=== PATIENT | female | born 1990 | race Caucasian/White ===

== ENCOUNTER 2021-01-11 00:46 | Emergency (ER) | payer SELFPAY ==
[~2021-01-11] VITALS: Ht 167.6 cm; Wt 67.1 kg
[2021-01-11 00:55] VITALS: BP_SYST 115
[2021-01-11 02:16] VITALS: BP_SYST 115
== END 2021-01-11 02:16 | disposition home or self-care (01) ==
LOC: SED 00:46
DX: R04.0 Epistaxis (principal)
CPT/HCPCS: 99281

== ENCOUNTER 2021-01-17 17:40 | Emergency (ER) | payer SELFPAY ==
[~2021-01-17] VITALS: Ht 167.6 cm; Wt 68.0 kg
[2021-01-17 17:50] VITALS: BP_SYST 131
--- NOTE | 2021-01-17 17:50 | NUR ---
Patient to ER bed 7 to gown for evaluation. Side rails up.
--- NOTE | 2021-01-17 17:51 | NUR ---
Pt came to Er for Bartholin cyst, states she has a hx of bartholin cyst x2 rates pain 8/. Pt resting in gurney at this time, no complaints at this time, VSS, boyfriend at bedside
[2021-01-17] MEDS ORDERED: LIDOCAINE 1% 10 MG/ML, 20 ML MDV INJ ONE (19:00)
--- NOTE | 2021-01-17 19:10 | NUR ---
Received report from LATONYA Brannon.
--- NOTE | 2021-01-17 20:08 | NUR ---
I&D Procedure done by Dr Jacqueline santiago using sterile technique. Lidocaine 1% used. Wound packed with 1/4 Packing Gauze. Adaptic, 4x4 and michael to wound. amt of bleeding noted. Wound care discussed w/ patient. Pt tolerated procedure well. Assisted Dr. Phillips by LATONYA Galvan
[2021-01-17] MEDS ORDERED: IBUPROFEN 600 MG TABLET PO ONE (20:30)
[2021-01-17] MEDS ORDERED: IBUP-1969 PO (20:39)
[2021-01-17 20:48] VITALS: BP_SYST 131
--- NOTE | 2021-01-17 20:48 | NUR ---
Patient given written and verbal discharge instructions and verbalizes understanding. ER MD discussed with patient the results and treatment provided. Patient in stable condition. ID arm band removed. Rx of Ibuprofen given. Patient educated on pain management and to follow up with PMD. Pain Scale 2/10. Opportunity for questions provided and answered. Medication side effect fact sheet provided.
== END 2021-01-17 20:48 | disposition home or self-care (01) ==
LOC: SED 17:40
DX: N75.1 Abscess of Bartholin's gland (principal)
CPT/HCPCS: 56420; 99284; J2001

== ENCOUNTER 2021-01-18 00:57 | Inpatient (IN) | payer BC, SELFPAY ==
[~2021-01-18] VITALS: Ht 167.6 cm; Wt 76.2 kg
[~2021-01-18 00:57] MED LIST: IBUP-1969 PO
[2021-01-18 01:05] VITALS: BP_SYST 116
--- NOTE | 2021-01-18 01:08 | NUR ---
Placed in room 2. Placed on prepared foods associate, blood pressure machine and pulse oximeter. To gown for exam. Side rails up. Report given to LATONYA Delacruz.
--- NOTE | 2021-01-18 01:09 | NUR ---
Patient came from home for evaluation of bodyaches, chills, and "not feeling good." Patient was seen last night for bartholin cyst, I&D was performed by Dr. Phillips. Patient presented with bodyaches and tachycardia.
--- NOTE | 2021-01-18 01:10 | NUR ---
Dr. Marshall [facility] for pt eval
[2021-01-18] MEDS ORDERED: CLINDAMYCIN 600 mg/50mL D5W 50 ML IV ONE (01:15)
[2021-01-18] MEDS ORDERED: NACL 0.9% 1,000 ML IV ONE (01:15)
[2021-01-18] MEDS ORDERED: NACL 0.9% 2,000 ML IV ONE (01:15)
[2021-01-18] MEDS ORDERED: ONDANSETRON HCL 4 MG/2 ML VIAL IVP ONE (01:15)
[2021-01-18] MEDS ORDERED: MORPHINE 4 MG INJ. 4 MG/ML VIAL IVP ONE (01:15)
[2021-01-18] MEDS ORDERED: VANCOMYCIN HCL 1,000 MG in NS 250 ML IV ONE (01:15)
--- NOTE | 2021-01-18 01:20 | NUR ---
Pt BIB family to ED with history of recurrent Bartholin cyst who presents emergency department because of fever chills. Patient had a recent I&D yesterday. Patient states that she did not feel that the purulent discharge had been completely removed. Since yesterday patient complains of fever chills body aches fatigue. She also complains of palpitations. Symptoms getting worse
[2021-01-18] MEDS ORDERED: ACETAMINOPHEN 500 MG TABLET PO ONE (01:30)
[2021-01-18 02:01] LABS: BASOPHILS % (AUTO) 0.2 % (0.0-2.0); CALCIUM 8.7 mg/dL (8.4-11.0); CREATININE 0.97 mg/dL (0.55-1.30); EOSINOPHILS # (AUTO) 0.3 K/uL (0.0-0.4); HEMATOCRIT 36.5 % (36-48); HEMOGLOBIN 12.4 g/dL (12.0-16.0); LYMPHOCYTES # (AUTO) 1.4 K/uL (1.0-5.5); LYMPHOCYTES % (AUTO) 8.7 % (20.5-51.5); MEAN CORPUSCULAR HEMOGLOBIN 31 pg (27-31); MEAN CORPUSCULAR HGB CONC 34 % (32-36); MEAN CORPUSCULAR VOLUME 92 fL (79.0-98.0); MONOCYTES # (AUTO) 1.3 K/uL (0.0-1.0); MONOCYTES % (AUTO) 8.1 % (1.7-9.3); NEUTROPHILS # (AUTO) 13.1 K/uL (1.8-7.7); PLATELET COUNT (AUTO) 234 K/uL (130-430); POTASSIUM 3.4 mmol/L (3.5-5.1); RED BLOOD CELL COUNT(AUTO) 3.95 MIL/uL (4.2-6.2); RED CELL DISTRIBUTION WIDTH 13.3 % (9.0-15.0); WHITE BLOOD COUNT (AUTO) 16.1 K/uL (4.8-10.8)
[2021-01-18 02:07] LABS: ALBUMIN 3.7 g/dL (3.4-4.8); TOTAL BILIRUBIN 0.3 mg/dL (0.0-1.0)
[2021-01-18] MEDS ORDERED: VANCOMYCIN HCL 1000 MG/VIAL IV ONE (02:12)
[2021-01-18] MEDS ORDERED: PROCHLORPERAZINE EDISYLATE 10 MG/2 ML VIAL IVP ONE (02:15)
--- NOTE | 2021-01-18 02:19 | NUR ---
US / Radiology study at bedside, well tolerated
--- NOTE | 2021-01-18 02:23 | NUR ---
Dr. Marshall bedside for pt update
--- NOTE | 2021-01-18 03:28 | NUR ---
Jaxon eaton in ED - 01/18/21 at 0349 by BRENDEN Pt resting comfortable post IM medications. well tolerated
--- NOTE | 2021-01-18 03:30 | NUR ---
Pt Resting comfortable, IV med and IVF well tolerated
[2021-01-18] MEDS ORDERED: MORPHINE 4 MG INJ. 4 MG/ML VIAL IVP PRN (03:45)
[2021-01-18] MEDS ORDERED: ACETAMINOPHEN 325 MG TABLET PO PRN (03:45)
--- NOTE | 2021-01-18 04:20 | NUR ---
COVID-19 swabs collected and sent to lab.
--- NOTE | 2021-01-18 05:21 | NUR ---
Pt remains in stable condition with VSS no s/s of acute distress Resting comfort on gurney rails up
[2021-01-18 06:27] VITALS: BP_SYST 96
--- NOTE | 2021-01-18 06:35 | NUR ---
Patient will be admitted to care of Dr. Alarcon. Admitted to Med Surg unit. Will go to room 110. Belongings list completed. Complete and up to date summary report printed. SBAR report to be given at bedside with opportunity for questions.
--- NOTE | 2021-01-18 07:00 | NUR ---
CLOSING NOTES PATIENT ADMITTED FROM ER FOR OBSERVATION. AAO X4. BREATHING UNLABORED ON ROOM AIR. NO C/O PAIN AT THIS TIME. IV LINE INTACT TO LEFT HAND. PATIENT ORIENTED TO ROOM, CALL LIGHT SYSTEM, BED AND TV CONTROLS. VITAL SIGNS STABLE. BED IN LOWEST LOCKED POSITION WITH ALARM ON. CALL LIGHT WITH IN EASY REACH.
--- NOTE | 2021-01-18 07:30 | NUR ---
ASSUMPTION OF CARE: RECEIVED PT A/A/OX4, DX: RISK FOR INFECTION, R/T BARTHOLIN CYST, AFEBRILE, VSS, NO C/O PAIN OR DISCOMFORT, BREATH SOUNDS ARE CLEAR, BREATHING UNLABORED, IV SITE INTACT, PATENT, NO REDNESS OR SWELLING, ORIENTED TO UNIT, CALL LIGHT PLACED WITHIN REACH, WILL CONT' TO MONITOR AND ASSESS.
[2021-01-18 08:00] VITALS: BP_SYST 116
[2021-01-18] MEDS: CLINDAMYCIN 600 MG in D5W 50 ML IV SCH ×2 (09:00→11:54)
--- NOTE | 2021-01-18 09:35 | NUR ---
OR: PT OFF UNIT TO OR FOR SCHEDULED INCISION AND DRAINAGE OF RIGHT SIDE BARTHOLIN CYST, CONSENT SIGNED BY PATIENT AFTER DISCUSSION WITH ANESTHESIOLOGIST, VERBALIZES UNDERSTANDING TO ALL QUESTIONS REGARDING RISK AND BENEFITS, FAMILY INFORMED, WILL CONT' WITH POC.
[2021-01-18] MEDS ORDERED: NALOXONE HCL 0.4 MG/ML AMP (NARCAN) ONE (10:23)
[2021-01-18] MEDS ORDERED: NALOXONE HCL 0.4 MG/ML AMP (NARCAN) IVP PRN ×2 (10:30)
[2021-01-18] MEDS ORDERED: HYDROmorphone 1 MG/ML INJ. CARTRIDGE IVP PRN ×2 (10:30)
[2021-01-18] MEDS ORDERED: ONDANSETRON HCL 4 MG/2 ML VIAL IVP PRN (10:30)
[2021-01-18] MEDS ORDERED: LR 1,000 ML IV SCH (10:30)
[2021-01-18] MEDS ORDERED: HYDROmorphone 2 MG/ML VIAL IVP PRN (10:30)
[2021-01-18] MEDS: HYDROmorphone 1 MG/ML INJ. CARTRIDGE ONE ×2 (10:40→10:45)
[2021-01-18 11:45] VITALS: BP_SYST 91
--- NOTE | 2021-01-18 12:00 | NUR ---
NURSES NOTES: PT RETURNED TO ROOM FROM PACU, CONDITION STABLE, VSS, A/A/OX4, NO S/S OF DISTRESS, NO C/O PAIN AT THIS TIME, NO BLEEDING OR DRAINAGE NOTED AT SURGICAL SITE, WILL CONT' TO MONITOR AND ASSESS.
[2021-01-18] MEDS: NACL 0.9% 1,000 ML IV SCH (12:01)
[2021-01-18] MEDS ORDERED: VANCOMYCIN HCL 1 GM/NS PREMIX 250 ML IV ONE (14:00)
[2021-01-18] MEDS: VANCOMYCIN HCL 1,000 MG in NS 250 ML IV SCH (14:24)
[2021-01-18] MEDS ORDERED: OXYCODONE/ACETAMINOPHEN 5-325 TABLET PO PRN (15:00)
[2021-01-18] MEDS ORDERED: IBUPROFEN 800 MG TABLET PO PRN (15:00)
[2021-01-18 15:50] VITALS: BP_SYST 95
--- NOTE | 2021-01-18 19:30 | NUR ---
OPENING NOTES RECEIVED REPORT FROM DAY RN. PATIENT LAYING IN BED WITH RESPIRATIONS EVEN AND UNLABORED ON RA. NO SIGNS OF DISTRESS NOTED. PT BOYFRIEND AT BEDSIDE. PT CURRENTLY DENIES PAIN. PT EDUCATED ON PLAN OF CARE FOR THE NIGHT. PT VERBALIZED UNDERSTANDING. PT STATES, "MY IV HURTS AND SWELLS". LEFT HAND IV 20G NO LONGER PATENT AND SL. BED IN LOW AND LOCKED POSITION. SAFETY/FALL PRECAUTIONS IN PLACE. CALL LIGHT WITHIN REACH. WILL CONTINUE TO MONITOR.
[2021-01-18 20:00] VITALS: BP_SYST 120
[2021-01-18] MEDS: OXYCODONE/ACETAMINOPHEN 5-325 TABLET PO PRN (23:07)
--- NOTE | 2021-01-18 23:10 | NUR ---
NEW IV INSERTED LEFT HAND 20G SL, REMOVED. TIP INTACT. PT TOLERATED WELL. RIGHT FA 20G IV INSERTED. BLOOD RETURN. FLUSHES WELL. PT TOLERATED PROCEDURE WELL. NO SIGNS OF INFILTRATION. RUNNING IVF.
[2021-01-19] MEDS: NACL 0.9% 1,000 ML IV SCH ×3 (00:08→05:45)
[2021-01-19 02:01] VITALS: BP_SYST 105
[2021-01-19] MEDS: VANCOMYCIN HCL 1,000 MG in NS 250 ML IV SCH ×2 (02:01→14:16)
--- NOTE | 2021-01-19 06:31 | NUR ---
CLOSING NOTES PATIENT SLEEPING IN BED. RESPIRATIONS EVEN AND UNLABORED ON RA. NO SIGNS OF DISTRESS NOTED. RFA 20G IV CLEAN, DRY AND INTACT RUNNING IVF. NO SIGNS OF INFILTRATION NOTED. WHEN ASKED, PT DENIES PAIN CURRENTLY. BED IN LOW AND LOCKED POSITION. ALL NEEDS MET THROUGHOUT THE NIGHT. CALL LIGHT WITHIN REACH. SAFETY PRECAUTIONS IN PLACE. WILL ENDORSE TO DAY RN.
--- NOTE | 2021-01-19 06:50 | NUR ---
IV REMOVED IV REMOVED BY PATIENT. TIP INTACT AND DISCARDED. NEW IV INSERTED INTO RFA 20G. BLOOD RETURN AND FLUSHES WELL. PT TOLERATED WELL. RECONNECTED TO FLUIDS.
[2021-01-19 07:40] VITALS: BP_SYST 103
--- NOTE | 2021-01-19 07:40 | NUR ---
OPENING NOTE Patient resting in the bed. No acute distress. AAO x 4. Denied of pain. Skin warm and dry to touch. IV intact to RFA, no redness, no swelling, no drainage. On NS at 125ml/hr, infusing well. Discussed the safety issue, use call light when needs help, and plan of care, verbally understanding. Safety measure maintained. Call light within reached. Bed locked in low position, side rails up. Refused bed alarm, risk and benefit explained, verbally understanding. Will continue to monitor.
--- NOTE | 2021-01-19 09:10 | NUR ---
BATHROOM Patient ambulatory to bathroom in steady gait. Patient performs pericare self. Safety measure maintained. Continue to monitor.
--- NOTE | 2021-01-19 11:05 | NUR ---
ROUND Patient resting in the bed with eye closed. No acute distress. IV intact, IVF infusing well. Safety measure maintained. Call light within reached. Continue to monitor.
[2021-01-19 12:00] VITALS: BP_SYST 110
--- NOTE | 2021-01-19 15:40 | NUR ---
SEEN AND EXAMINED BY JACQUE LAZCANO.
[2021-01-19 16:00] VITALS: BP_SYST 111
--- NOTE | 2021-01-19 17:25 | NUR ---
CALLED JOHN LAZCANO REGARDING THE ADM ORDER. DR. GOFF CHANGE ORDER OF OBSERVATION TO IN-PATIENT.
--- NOTE | 2021-01-19 18:58 | NUR ---
CLOSING NOTE Patient resting in the bed. No acute distress. Denied of pain during shift. Skin warm and dry to touch. IV intact to RFA, no redness, no swelling, no drainage. IVF, infusing well. All needs met. Safety measure maintained. Call light within reached. Bed locked in low position, side rails up. Refused bed alarm, risk and benefit explained, verbally understanding. Will endorse to night nurse.
--- NOTE | 2021-01-19 19:30 | NUR ---
OPENING NOTES RECEIVED REPORT FROM DAY RN. PATIENT LAYING IN BED WITH RESPIRATIONS EVEN AND UNLABORED. 20G RFA IV PATENT AND INTACT RUNNING IVF. NO SIGNS OF INFILTRATION NOTED. PT TOLERATING WELL. PT AAOX4. BED IN LOW AND LOCKED POSITION. 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 PT VERBALIZED UNDERSTANDING. CALL LIGHT WITHIN REACH. SAFETY PRECAUTIONS IN PLACE. WILL CONTINUE TO MONITOR.
[2021-01-19 20:00] VITALS: BP_SYST 110
[2021-01-20] MEDS: NACL 0.9% 1,000 ML IV SCH ×2 (00:45→02:42)
[2021-01-20 01:18] VITALS: BP_SYST 119
[2021-01-20] MEDS: VANCOMYCIN HCL 1,000 MG in NS 250 ML IV SCH (02:29)
--- NOTE | 2021-01-20 06:13 | NUR ---
CLOSING NOTES PATIENT LAYING IN BED WITH RESPIRATIONS EVEN AND UNLABORED ON RA. NO SIGNS OF DISTRESS NOTED. 20G RFA IV PATENT AND INTACT RUNNING IVF. NO SIGNS OF INFILTRATION NOTED. PT TOLERATING WELL. BED IN LOW AND LOCKED POSITION. CALL LIGHT WITHIN REACH. SAFETY PRECAUTIONS IN PLACE. ALL NEEDS MET THROUGHOUT THE NIGHT. WILL ENDORSE TO DAY RN.
--- NOTE | 2021-01-20 08:00 | NUR ---
OPENING NOTE PATIENT IS AWAKE, ALERT AND ORIENTED. RESTING IN BED, ON ROOM AIR, BREATHING EVEN WITHOUT ANY DIFFICULTY. IV PATENT INFUSING WELL. DR GALLO IS AT BEDSIDE, REMOVING THE PACKING. CALL LIGHT IN REACH, SAFETY MAINTAINED.
--- NOTE | 2021-01-20 08:00 | NUR ---
OPENING NOTE PATIENT IS AWAKE, ALERT AND ORIENTED. RESTING IN BED, ON ROOM AIR, BREATHING EVEN WITHOUT ANY DIFFICULTY. IV PATENT, CATHETER DRAINING VIA GRAVITY. PLANNING FEEDER IS AT BED SIDE ASSISTING PATIENT FOR BREAKFAST. PATIENT TURNED AND REPOSITIONED FOR COMFORT. CALL LIGHT IN REACH, SAFETY MAINTAINED. Addendum: 01/20/21 at 0857 by Mi Arzate RN [facility] PATIENT
[2021-01-20] MEDS: OXYCODONE/ACETAMINOPHEN 5-325 TABLET PO PRN (08:22)
--- NOTE | 2021-01-20 19:30 | NUR ---
CLOSING NOTES PATIENT LAYING IN BED NO SIGNS OF DISTRESS. BED IN LOW AND LOCKED POSITION. CALL LIGHT WITHIN REACH. SAFETY PRECAUTIONS IN PLACE. ALL NEEDS MET THROUGHOUT THE NIGHT. WILL ENDORSE TO DAY RN.
--- NOTE | 2021-01-20 19:35 | NUR ---
REPORT RECEIVED FROM DAY SHIFT NURSE.
[2021-01-20] MEDS: VANCOMYCIN HCL 1.25 GM/NS 250 ML IV SCH (19:48)
[2021-01-20 20:00] VITALS: BP_SYST 109
[2021-01-21] MEDS: NACL 0.9% 1,000 ML IV SCH ×2 (00:45→02:15)
[2021-01-21] MEDS: VANCOMYCIN HCL 1.25 GM/NS 250 ML IV SCH (06:31)
--- NOTE | 2021-01-21 06:35 | NUR ---
PT IS RESTING COMFORTABLY IN BED. ALL PT'S NEEDS WERE ATTENDED TO. WILL ENDORSE TO DAY SHIFT NURSE.
--- NOTE | 2021-01-21 08:00 | NUR ---
OPENING NOTES PATIENT IS AWAKE, ALERT AND ORIENTED. ON ROOM AIR, BREATHING EVEN, WITHOUT DIFFICULTY. NO SIGNS OF DISTRESS NOTED. DENIES PAIN OR DISCOMFORT. IV PATENT, CLEAN AND INTACT RUNNING IVF. NO SIGNS OF INFILTRATION. UPDATED PATIENT ON PLAN OF CARE, BED IN LOW AND LOCKED POSITION. CALL LIGHT WITHIN REACH. SAFETY MAINTAINED
[2021-01-21 10:36] VITALS: BP_SYST 129
[2021-01-21] MEDS ORDERED: CEPH250C PO (10:46)
[2021-01-21] MEDS ORDERED: METR500T PO (10:48)
--- NOTE | 2021-01-21 11:00 | NUR ---
D/C Patient MD discussed with patient the treatment provided and patient was given written prescription and follow up instructions.Patient verbalized understanding. Ambulatory with steady gait for discharge to home. Patient in stable condition, ID band removed. IV catheter removed, intact and dressing applied, no active bleeding. Patient educated on pain management. All belongings sent with patient.exit care provided.
--- NOTE | 2021-01-23 09:13 | NUR ---
Disposition 01
== END 2021-01-21 11:30 | disposition home or self-care (01) | DRG 872 ==
LOC: SED 00:57 → INTOOBSV 03:40 → SMU 03:40 → OBSVTOIN 03:40 → SMU 06:10 → OBSVTOIN 01-19 17:28
PROVIDERS: ADMIT Obstetrics & Gynecology; ATTEND Obstetrics & Gynecology
PROC: 0U9L0ZZ Drainage of Vestibular Gland, Open Approach (ICD-10-PCS; principal; 2021-01-18 09:40)
DX: A41.9 Sepsis, unspecified organism (principal); N75.1 Abscess of Bartholin's gland; Z20.822 Contact with and (suspected) exposure to COVID-19; Z79.899 Other long term (current) drug therapy
CPT/HCPCS: 36415; 76857; 80053; 80202; 83605; 84484; 84703; 85025; 87040-TC; 87070; 87070-TC; 87081; 93005; 96365; 96366; 96367; 96375; 99285; G0378; J0780; J1170; J2270; J2310; J2405; J3370; J3490; J7050; J7060

== ENCOUNTER 2021-08-19 00:43 | Emergency (ER) | payer BC, SELFPAY ==
[~2021-08-19] VITALS: Ht 167.6 cm; Wt 72.6 kg
[~2021-08-19 00:43] MED LIST changes: +CEPH250C PO; +METR500T PO
[2021-08-19 01:15] VITALS: BP_SYST 126
--- NOTE | 2021-08-19 02:00 | NUR ---
Per clerk guide, pt LWBS.
== END 2021-08-19 02:00 | disposition left against medical advice (07) ==
LOC: SED 00:43
DX: N76.0 Acute vaginitis (principal); Z53.21 Procedure and treatment not carried out due to patient leaving prior to being seen by health care provider